=== PATIENT | female | born 1955 | race Caucasian/White ===

== ENCOUNTER 2020-11-23 11:28 | Day surgery (SDC) | payer MEDICARE, MEDICAID ==
[~2020-11-23] VITALS: Ht 160 cm; Wt 117.2 kg
[2020-11-23] VITALS (8 sets, daily range): BP systolic 130–153; BP diastolic 74–93
[2020-11-23] MEDS ORDERED: LORazepam 0.5 MG tablet PO PRN (12:20)
[2020-11-23] MEDS ORDERED: diphenhydrAMINE 25mg capsule PO PRN (12:20)
[2020-11-23] MEDS ORDERED: normal saline 1,000 ML IV SCH (12:20)
[2020-11-23] MEDS ORDERED: OMEP40CA13 PO (14:12)
[2020-11-23] MEDS ORDERED: LISI40TA13 PO (14:12)
[2020-11-23] MEDS ORDERED: METF500T PO (14:12)
[2020-11-23] MEDS ORDERED: fentaNYL/PF 50MCG/1 ML 2ML syringe ONE (14:16)
[2020-11-23] MEDS ORDERED: nitroGLYCERIN-Tridil 50MG/D5W 250 ML IV ONE (14:16)
[2020-11-23] MEDS ORDERED: verapamil 2.5 mg/ml inj IV ONE (14:16)
[2020-11-23] MEDS ORDERED: LIDOcaine 1% (10mg/ml)w/preservative injection 20ml MDV ONE (14:16)
[2020-11-23] MEDS ORDERED: iohexol 350MG/ML 100ml bottle IV ONE (14:16)
[2020-11-23] MEDS ORDERED: midazolam 2 mg/2 ml injection ONE (14:16)
[2020-11-23] MEDS ORDERED: heparin 1,000unit/ml 10ml vial 10 ML ONE (14:16)
[2020-11-23] MEDS ORDERED: METO-384 PO (14:19)
[2020-11-23] MEDS ORDERED: APIX5TAB3 PO (14:19)
[2020-11-23] MEDS ORDERED: ATOR40TA72 PO (14:19)
[2020-11-23] MEDS ORDERED: ISOS30TA84 PO (14:19)
[2020-11-23] MEDS ORDERED: FURO40TA4 PO (14:19)
[2020-11-23] MEDS ORDERED: POTA20TA19 PO (14:19)
[2020-11-23] MEDS ORDERED: DULA0.75 (14:19)
[2020-11-23] MEDS ORDERED: DULO60CA65 PO (14:19)
[2020-11-23] MEDS ORDERED: NITR0.4T48 SL (14:27)
[2020-11-23] MEDS ORDERED: ACET-3209 PO (14:27)
[2020-11-23] MEDS ORDERED: MAGNESIUM (14:27)
[2020-11-23] MEDS ORDERED: ASPI-611 PO (14:27)
[2020-11-23] MEDS ORDERED: ACET1TAB25 PO (14:27)
[2020-11-23] MEDS ORDERED: hydrocortisone sod succ/PF 100mg/2ml inj. ONE (14:48)
[2020-11-23] MEDS ORDERED: ondansetron/PF 4mg/2ml inj IV PRN (16:05)
[2020-11-23] MEDS ORDERED: proCHLORperazine 10 MG/2 ml inj IV PRN (16:05)
[2020-11-23] MEDS ORDERED: HYDROcodone/acetaminophen 10/325mg tab PO PRN (16:05)
[2020-11-23] MEDS ORDERED: HYDROcodone/acetaminophen 5mg/325mg tablet PO PRN (16:05)
[2020-11-23] MEDS ORDERED: OXAZEpam 15mg capsule PO PRN (16:05)
== END 2020-11-23 18:15 | disposition home or self-care (01) ==
LOC: SSTAY O 11:28
PROVIDERS: ATTEND Internal Medicine Interventional Cardiology
DX: I25.10 Atherosclerotic heart disease of native coronary artery without angina pectoris (principal); R94.39 Abnormal result of other cardiovascular function study; I10 Essential (primary) hypertension; E11.9 Type 2 diabetes mellitus without complications; I48.91 Unspecified atrial fibrillation; I49.9 Cardiac arrhythmia, unspecified
CPT/HCPCS: 36415; 82948; 85610; 93005; 93458; C1769; J1644; J1720; J2001; J2250; J3010; J7030; Q0163; Q9967; 99152; 99153; A4620; A5120; J3490